=== PATIENT | male | born 1970 | race Caucasian/White ===

== ENCOUNTER 2016-09-27 18:39 | Emergency (ER) | payer MEDICAID ==
[~2016-09-27] VITALS: Ht 177.8 cm; Wt 80.1 kg
[~2016-09-27 18:39] MED LIST: ALPR1TAB10 PO; PROP10TA PO
[2016-09-27 19:22] VITALS: BP 118/83
== END 2016-09-27 19:57 | disposition home or self-care (01) ==
LOC: ED 19:25
DX: F41.9 Anxiety disorder, unspecified (principal); I10 Essential (primary) hypertension; J44.9 Chronic obstructive pulmonary disease, unspecified; Z88.8 Allergy status to other drugs, medicaments and biological substances; Z98.890 Other specified postprocedural states
CPT/HCPCS: 99284

== ENCOUNTER 2016-11-05 18:09 | Emergency (ER) | payer MEDICAID ==
[~2016-11-05] VITALS: Ht 177.8 cm; Wt 75.2 kg
[2016-11-05] MEDS ORDERED: KETOROLAC 30 MG/1 ML ONE (19:12)
[2016-11-05] MEDS ORDERED: ALBUTEROL/IPRATROPIUM 2.5MG/0.5MG, 3 ML ONE (19:12)
[2016-11-05] MEDS ORDERED: KETOROLAC 30 MG/1 ML IM ONE (19:30)
[2016-11-05] MEDS ORDERED: ALBUTEROL/IPRATROPIUM 2.5MG/0.5MG, 3 ML NPPB ONE (19:30)
[2016-11-05 20:00] VITALS: BP 111/84
[2016-11-05 20:08] LABS: BLOOD UREA NITROGEN 12 mg/dL (7-18)
[2016-11-05 20:13] LABS: IS PT STATUS REG ER OR PRE ER? YES
== END 2016-11-05 20:55 | disposition home or self-care (01) ==
LOC: ED 20:49
DX: J20.8 Acute bronchitis due to other specified organisms (principal); R09.1 Pleurisy; J44.9 Chronic obstructive pulmonary disease, unspecified; I10 Essential (primary) hypertension
CPT/HCPCS: 36415; 71020; 80048; 82040; 84484; 85025; 93005; 94640; 96372; 99285; J1885; J7620

== ENCOUNTER 2018-12-28 14:06 | Emergency (ER) | payer SELFPAY ==
[~2018-12-28] VITALS: Ht 180.3 cm; Wt 81.0 kg
[~2018-12-28 14:06] MED LIST changes: -PROP10TA PO; +PROP10TA16 PO
[2018-12-28 14:10] VITALS: BP 148/80
[2018-12-28] MEDS ORDERED: KETOROLAC 30 MG/1 ML ONE (16:01)
[2018-12-28] MEDS ORDERED: KETOROLAC 30 MG/1 ML IM ONE (16:30)
== END 2018-12-28 16:06 | disposition home or self-care (01) ==
LOC: ED 15:54
DX: R07.89 Other chest pain (principal); I10 Essential (primary) hypertension; J44.9 Chronic obstructive pulmonary disease, unspecified; F17.200 Nicotine dependence, unspecified, uncomplicated; Z88.8 Allergy status to other drugs, medicaments and biological substances
CPT/HCPCS: 71046; 93005; 96372; 99283; J1885

== ENCOUNTER 2019-07-16 13:21 | Emergency (ER) | payer MEDICAID ==
[~2019-07-16] VITALS: Ht 177.8 cm; Wt 73.3 kg
--- NOTE | 2019-07-16 13:25 | NUR ---
NIL X 1 @[id number]
[2019-07-16 13:37] VITALS: BP 122/82
--- NOTE | 2019-07-16 16:00 | NUR ---
CALLED FOR ROOM, NO ANSWER
--- NOTE | 2019-07-16 16:07 | NUR ---
CALLED FOR ROOM, NO ANSWER
--- NOTE | 2019-07-16 16:30 | NUR ---
CALL FOR ROOM, NO ANSWER
== END 2019-07-16 16:34 | disposition left against medical advice (07) ==
LOC: ED 16:23
DX: H57.11 Ocular pain, right eye (principal); Z53.21 Procedure and treatment not carried out due to patient leaving prior to being seen by health care provider

== ENCOUNTER 2019-08-16 11:15 | Emergency (ER) | payer MEDICAID ==
[~2019-08-16] VITALS: Ht 180.3 cm; Wt 72.4 kg
[2019-08-16 12:01] LABS: BASOPHILS # (AUTO) 0.03 x10^3/uL (0-0.1); BASOPHILS % (AUTO) 0 % (0-1); EOSINOPHILS # (AUTO) 0.07 x10^3/uL (0-0.4); EOSINOPHILS % (AUTO) 1 % (1-7); LYMPHOCYTES # (AUTO) 1.71 x10^3/uL (1-3.4); LYMPHOCYTES % (AUTO) 18 % (22-44); MD NO; MEAN CORPUSCULAR HEMOGLOBIN 32.3 pg (27.5-34.5); MEAN CORPUSCULAR VOLUME 95.1 fL (81-97); MEAN PLATELET VOLUME 7.7 fL (7.4-10.4); MONOCYTES # (AUTO) 0.38 x10^3/uL (0.2-0.8); MONOCYTES % (AUTO) 4 % (2-9); NEUTROPHILS # (AUTO) 7.32 x10^3/uL (1.8-6.8); NEUTROPHILS % (AUTO) 77 % (42-75); PLATELET COUNT 358 x10^3/uL (130-400); RED BLOOD COUNT 4.81 x10^6/uL (4.38-5.82); RED CELL DISTRIBUTION WIDTH 13.9 % (9.4-14.8)
[2019-08-16 12:12] LABS: ALBUMIN 3.6 g/dL (3.4-5.0); ANION GAP 9 mmol/L (5-15); CALCIUM 9.4 mg/dL (8.5-10.1); CHLORIDE 102 mmol/L (98-107); CREATININE 0.86 mg/dL (0.7-1.3)
[2019-08-16 12:16] LABS: TROPONIN I < 0.015 ng/mL (0.000-0.045)
--- NOTE | 2019-08-16 12:36 | NUR ---
bilingual spanish inbound sales: Pt ambulatory to ED room 17 from [facility] at this time
--- NOTE | 2019-08-16 12:57 | NUR ---
PT TO ROOM 17 W/ C/O COUGH X WEEKS AND CP PN INSPIRATION/PALPATION. NO CP AT REST. PT STATES PRODUCTIVE COUGH W/ GREEN SPUTUM. PT HAS HX COPD. PT IS SMOKER. PT RESTING ON YatedoN. MONITORS APPLIED. VSS.
[2019-08-16 13:16] VITALS: BP 130/85
--- NOTE | 2019-08-16 13:16 | NUR ---
PT RESTING ON GURNEY. NADN. VELAZQUEZ.
== END 2019-08-16 13:56 | disposition home or self-care (01) ==
LOC: ED 13:41
DX: B34.9 Viral infection, unspecified (principal)
CPT/HCPCS: 36415; 71046; 80048; 82040; 83605; 84484; 85025; 87040; 93005; 99284

== ENCOUNTER 2019-09-20 07:04 | Emergency (ER) | payer MEDICAID ==
[~2019-09-20] VITALS: Ht 179.1 cm; Wt 76.7 kg
[2019-09-20 07:14] VITALS: BP 146/92
== END 2019-09-20 09:34 ==
LOC: ED 09:28
DX: G89.11 Acute pain due to trauma (principal); M79.672 Pain in left foot; L03.032 Cellulitis of left toe; J44.9 Chronic obstructive pulmonary disease, unspecified; I10 Essential (primary) hypertension; X58.XXXA Exposure to other specified factors, initial encounter; Y93.89 Activity, other specified; Y92.009 Unspecified place in unspecified non-institutional (private) residence as the place of occurrence of the external cause; Y99.8 Other external cause status
CPT/HCPCS: 99283

== ENCOUNTER 2021-03-11 00:19 | Emergency (ER) | payer MEDICAID ==
[~2021-03-11] VITALS: Ht 177.8 cm; Wt 74.0 kg
--- NOTE | 2021-03-11 01:00 | NUR ---
Pt brought in by EMS from [facility] c/o N/V x 1 day. Pt has approx vomited x3 times. Per [facility] staff, coffee ground in nature. They gave pt porton pump inhibitor medication. Unknown name. EMS gave ODT Zofran. Pt denies relief. Pt alert and oriented. 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 States last use x3 days ago.
[2021-03-11 01:15] LABS: BASOPHILS % (AUTO) 1 % (0-1); EOSINOPHILS % (AUTO) 0 % (1-7); LYMPHOCYTES % (AUTO) 9 % (22-44); MEAN CORPUSCULAR HEMOGLOBIN 31.8 pg (27.5-34.5); MEAN CORPUSCULAR HGB CONC 34.3 g/dL (33.2-36.2); MEAN PLATELET VOLUME 7.9 fL (7.4-10.4); MONOCYTES % (AUTO) 11 % (2-9); NEUTROPHILS % (AUTO) 80 % (42-75); PLATELET COUNT 229 x10^3/uL (130-400); RED BLOOD COUNT 5.36 x10^6/uL (4.38-5.82); RED CELL DISTRIBUTION WIDTH 13.6 % (9.4-14.8)
[2021-03-11 01:22] LABS: ALANINE AMINOTRANSFERASE 26 U/L (12-78); ALBUMIN 3.2 g/dL (3.4-5.0); ANION GAP 4 mmol/L (5-15); CALCIUM 9.2 mg/dL (8.5-10.1); CHLORIDE 93 mmol/L (98-107); CREATININE 0.81 mg/dL (0.7-1.3)
[2021-03-11 01:26] LABS: INTERNATIONAL NORMALIZED RATIO 1.06 (0.93-1.1); PROTHROMBIN TIME 11.3 Seconds (9.6-11.5)
[2021-03-11 01:27] LABS: ALKALINE PHOSPHATASE 97 U/L (45-117); BILIRUBIN,TOTAL 0.6 mg/dL (0.2-1.0); TOTAL PROTEIN 7.9 g/dL (6.4-8.2); TROPONIN I < 0.015 ng/mL (0.000-0.045)
[2021-03-11 01:59] VITALS: BP 129/82
--- NOTE | 2021-03-11 02:01 | NUR ---
Pt refusing rectal exam. 94% on RA. MD Prakash aware.
[2021-03-11] MEDS ORDERED: ONDANSETRON ODT 4 MG ONE (02:35)
--- NOTE | 2021-03-11 02:39 | NUR ---
Pt ambulated out of ED w/ steady gait. all discharge paperwork given to [facility] represenative. Pt being discharged w/ [facility] rep back to [facility] at this time. Taxi to take pt and commercial pest control representative back. All questions answered regarding discharge instructions. Strict return precautions discussed.
[2021-03-11] MEDS ORDERED: ONDANSETRON ODT 4 MG PO ONE (03:00)
== END 2021-03-11 02:41 | disposition home or self-care (01) ==
LOC: ED 02:40
DX: J43.9 Emphysema, unspecified (principal); R11.2 Nausea with vomiting, unspecified; G47.30 Sleep apnea, unspecified; I10 Essential (primary) hypertension; F17.200 Nicotine dependence, unspecified, uncomplicated
CPT/HCPCS: 36415; 71045; 80053; 83690; 84484; 85025; 85610; 86850; 86900; 99284; Q0162; 99285